=== PATIENT | female | born 1985 | race Caucasian/White ===

== ENCOUNTER → 2018-06-19 | Outpatient (CLI) | payer SELFPAY ==
--- NOTE | 2018-06-25 16:49 | SP ---
DATE OF PROCEDURE: 06/19/2018 INDICATION: Outpatient study for 33-year-old lady with history of seizures, on Keppra. DESCRIPTION OF PROCEDURE: Outpatient EEG was recorded digitally. [id number]-ge-[id number] and [id number]-lm-[id number] montages were recorded and reviewed. All impedances were measured and recorded. Cap electrodes were placed in accordance to International 10-20 system of electrode placement. FINDINGS: Symmetrically distributed background activity of low to medium amplitude ranging in frequency between 9 to 10 cycles per second was seen in the awake state. Photic stimulation produces mild driving. Hyperventilation elicits no epileptiform activity. When patient gets drowsy, occasional slowing of background 4 to 6 cycles per second and slight attenuation of background were seen. No definite epileptiform transients were seen. No signs of ongoing electrographic seizures or lateralized slowing. IMPRESSION: Normal study. Please correlate clinically. Dictated By: JENNIFER MOSER/MARYLOU Conf#: [id number] DID#: [id number] TATE
== END | disposition home or self-care (01) ==
LOC: EEG 12:06
PROVIDERS: ATTEND Family Medicine Adult Medicine
DX: R56.9 Unspecified convulsions (principal)
CPT/HCPCS: 95819

== ENCOUNTER → 2019-03-26 | Outpatient (CLI) | payer SELFPAY | END | disposition home or self-care (01) | LOC: EEG 12:43 | PROVIDERS: ATTEND Psychiatry & Neurology Neurology | DX: G40.909 Epilepsy, unspecified, not intractable, without status epilepticus (principal) | CPT/HCPCS: 95819 ==